=== PATIENT | male | born 1965 | race Caucasian/White ===

== ENCOUNTER 2019-09-18 07:57 | Inpatient (IN) | payer OTHER ==
[~2019-09-18] VITALS: Ht 180.3 cm; Wt 95.3 kg
[2019-09-18] VITALS (9 sets, daily range): BP systolic 129–164; BP diastolic 72–98
--- NOTE | ~2019-09-18 | H ---
[facility] [place] [address] HISTORY AND PHYSICAL Name: ILENE HUITRON Room #: 170-2 ADM IN M.R.#: [id number] Admission: 09/18/19 Attend Phys: Jerry Quiles MD, Discharge: Date of : 65 Report #: [id number] THIS REPORT FOR: cc: FAM - Family physician unknown FAM - Family physician unknown ~ CC: [facility] unknown Jerry GIBBONS DO EVA DE LA GARZA DO DATE OF SERVICE: 09/18/2019 HISTORY OF PRESENT ILLNESS: The patient is a 54-year-old male seen by Dr. Gibbons in [place], [place]; Dr. De La Garza, his cardiology down there. He is up in [place] this morning having some worsening chest pain. Apparently, this has been occurring intermittently for the last 6 days with some exertional component. 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 It looks like from the limited records, he had a 3.5 x 23 stent placed to his proximal LAD in [place] in November of last year. This was in the setting of an acute anterior myocardial infarction. He has been back to work and had 1 stress test post-procedure. Apparently, there was no damage done. He had been pain free until this week. He has been compliant with medications, which were Plavix, aspirin, Lasix 40, tizanidine, Lisinopril 5, spironolactone 25 and pravastatin 40. There has been a decrease in exercise tolerance. No PND, orthopnea, peripheral edema. No syncope or presyncope. His laboratory work has a negative troponin. His EKG does have what looks like possibly an old anterior infarct. His sodium is 139, potassium 4.7, creatinine 1.2. Liver function tests look normal. H and H is 15 and 43. Chest x-ray is normal. PAST MEDICAL HISTORY: Positive for coronary artery disease, hypertension, hypercholesterolemia and some anemia, which was iron deficient, which is now resolved with iron supplement. No surgeries, he states. SOCIAL HISTORY: He is . He has grown children. He lives with his sister. An lqrr-pvm-skbo semi truck driver. He drinks on the weekends and he has been a smoker of vapor since he was a teenager. FAMILY HISTORY: Only an uncle had premature coronary disease in his 50s, parents and siblings have not. REVIEW OF SYSTEMS: Essentially negative except for some occasional nocturia. PHYSICAL EXAMINATION: VITAL SIGNS: Blood pressure 150/98, pulse 70s. [address] [address] HISTORY AND PHYSICAL Name: ILENE HUITRON Room #: [facility]-2 [facility] IN M.R.#: [id number] Admission: 09/18/19 Attend Phys: Jerry Quiles MD, Discharge: Date of : 65 Report #: [id number] HEENT: Eyes reveal xanthelasmas. Pharynx is clear. NECK: Shows preserved upstrokes without JVD or bruits. LUNGS: Clear. CARDIOVASCULAR: Regular rate and rhythm, S1, S2. No murmur or gallop. ABDOMEN: Soft, slightly tender in the epigastric area. EXTREMITIES: Reveal no edema. His pulses were intact. NEUROLOGIC: Nonfocal. SKIN: Warm and dry without xanthoma or ulcer. MUSCULOSKELETAL: No gross joint deformity. ASSESSMENT: 1. Recurrent chest pain consistent with prior anginal equivalent. 2. Coronary artery disease with left anterior descending stent placed November 2018. 3. Hypertension. 4. Hypercholesterolemia. 5. History of iron deficiency anemia, apparently resolved. RECOMMENDATIONS AND PLAN: Admitted under observation. We will proceed to the catheterization lab to delineate the anatomy. Based on his story, sounds this is certainly suspicious for some recurrent coronary issue here. Risks, benefits, alternatives were discussed with him and his sister. We will proceed to the label tacker here at some point today. Thank you for asking me to assist in the care of this patient. By: 0916 1009 /nt
--- NOTE | ~2019-09-18 | D ---
[facility] [place] [address] DISCHARGE SUMMARY Name: ILENE HUITRON Room #: 212-P ADM IN M.R.#: [id number] Admission: 09/18/19 Attend Phys: Jerry Quiles MD, Discharge: Date of : 65 Report #: [id number] THIS REPORT FOR: cc: FAM - Family physician unknown FAM - Family physician unknown ~ THIS REPORT FOR: //name// CC: Dr. Aamir Harvey [facility] unknown Jerry Burgess [facility]: The patient is a 54-year-old male who was admitted to [facility] with recurrent chest pain. 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 He had a 3.5 x 23 drug-eluting stent to his proximal LAD in [place], [place] in October of last year. Dr. Burgess did a stress test approximately 4-5 months ago, which showed no ischemia. He has been doing fairly well. He has been compliant with his medications and is on dual antiplatelet therapy and subsequently ruled out and taken to the catheterization lab based on this history. His LAD stent is long and widely patent, but there is some mild restenosis within a focal area in the middle of the stent of approximately 50%, but the caliber of this vessel was still the size of the vessel as the mid and distal LAD wrapped the apex, so I do not perceive this to be flow limiting and certainly not tight enough to give anything like rest pain. The circumflex is large and nondominant with mild disease. The dominant right has a 30-40% proximal mid vessel lesion. No occlusive disease. There is an anterolateral defect noted. The EF is in the 50% range. His abdominal aorta was intact. No aneurysm and renal arteries were patent. I do not perceive this the anatomy that would give him rest pain or even progressive symptoms. He has not been exercising, certainly needs to continue to do so. He continues to vape and I would strongly recommend against not vaping. He will be discharged to home later today after IV fluids in the follow discharge protocol. His groin is stable. He had a Mynx closure device. No lifting for 48 hours, no lying in tub or Jacuzzi or goyal for a week. He may return to work here in 48 hours. Restart home medications of lisinopril 5, tizanidine, Aldactone 25, pravastatin 40, Lasix 40, Plavix and aspirin. He probably could go to Lasix every other day. His pump function is fairly well preserved. I do not see a reason for any volume overload here. DISCHARGE DIAGNOSES: 1. Recurrent chest pain, negative troponin. 2. Coronary artery disease with prior stent 10/2018, 50% in-stent restenosis in 1 focal area and long proximal left anterior descending stent. See above report. Mild right coronary artery disease. 3. Mild ischemic cardiomyopathy of 45-50% range. 4. Hypertension. [address] [address] DISCHARGE SUMMARY Name: ELANAILENE Room #: 212-P [facility] IN M.R.#: [id number] Admission: 09/18/19 Attend Phys: Jerry Quiles MD, Discharge: Date of : 65 Report #: [id number] 5. Hypercholesterolemia. FOLLOWUP: With Dr. Burgess and Dr. Harvey next month. Thank you for asking me to assist in the care of this patient. By: 1604 1631 /nt
[~2019-09-18 07:57] MED LIST: PRAVACHOL40 MG PO; PROTONIX40 M1 PO
[2019-09-18] MEDS ORDERED: PLAVIX 75 MG TA75 MG PO (08:09)
[2019-09-18] MEDS ORDERED: ASPIR 8181 M1 PO (08:10)
[2019-09-18] MEDS ORDERED: FUROSEMIDE 40 M40 MG PO (08:11)
[2019-09-18] MEDS ORDERED: TIZANIDINE4 MG/1 TA1 PO (08:11)
[2019-09-18] MEDS ORDERED: LISINOPRIL5 MG PO (08:12)
[2019-09-18] MEDS ORDERED: SPIRONOLACTONE25 MG PO (08:12)
[2019-09-18 08:42] LABS: ABSOLUTE NEUTROPHILS 4.5 thou/uL (1.4-8.2); BASOPHILS 0.7 % (0.0-2.0); EOSINOPHILS 3.2 % (0.0-3.0); HEMATOCRIT 43.9 % (42.0-52.0); HEMOGLOBIN 15.1 gm/dL (14.0-18.0); LYMPHOCYTES 25.8 % (24.0-44.0); MCH 33.2 pg (26.0-34.0); MCHC 34.3 g/dL (28.0-37.0); MCV 96.8 fL (80.0-100.0); MONOCYTES 6.4 % (1.0-8.0); PLATELET COUNT 252 thou/uL (150-400); POLYS 63.9 % (36.0-66.0); RBC 4.53 mil/uL (4.50-6.00); RDW 13.9 % (10.5-14.5)
[2019-09-18 08:49] LABS: ANION GAP 6 mmol/L (7-16); BUN 22 mg/dL (7-18); CALCIUM 9.7 mg/dL (8.5-10.1); CHLORIDE 103 mmol/L (98-107); CO2 30 mmol/L (21-32); CREATININE 1.2 mg/dL (0.7-1.3); GLUCOSE 109 mg/dL (74-106); POTASSIUM 4.7 mmol/L (3.5-5.1); SODIUM 139 mmol/L (136-145)
[2019-09-18 09:00] LABS: ALBUMIN 4.5 g/dL (3.4-5.0); SGOT 23 U/L (15-37); SGPT 35 U/L (30-65); TOTAL BILIRUBIN 0.3 mg/dL (<0.1-1.0); TOTAL PROTEIN 8.3 g/dL (6.4-8.2); TROPONIN-I <0.06 ng/mL (<0.06)
[2019-09-18 10:02] LABS: AMP/METHAMP Negative (Negative); BARBITURATES Negative (Negative); BENZODIAZEPINES Negative (Negative); COCAINE Negative (Negative); METHADONE Negative (Negative); OPIATES Negative (Negative); PCP Negative (Negative)
--- NOTE | 2019-09-18 14:42 | 2DMMODE ---
[facility] [place] [address] 2 D/M-MODE ECHOCARDIOGRAM Name: ILENE HUITRON Room #: 212-P ADM IN M.R.#: [id number] Admission: 09/18/19 Attend Phys: Jerry Quiles MD, Discharge: Date of : 65 Report #: [id number] THIS REPORT FOR: cc: FAM - Family physician unknown FAM - Family physician unknown Yahir Gonsales MD [facility] ~ APPROVED REPORT Study performed: 09/18/2019 13:49:30 EXAM: Comprehensive 2D, Doppler, and color-flow Echocardiogram Patient Location: Bedside Room #: 212 Status: routine BSA: 2.15 HR: 65 bpm BP: 135/95 mmHg Rhythm: NSR Other Information Study Quality: Good Indications Chest Pain Hx: CAD, stents, HTN, HLP. 2D Dimensions RVDd: 29.21 mm IVSd: 9.40 (7-11mm) LVOT Diam: 23.00 (18-24mm) LVDd: 57.00 mm PWd: 10.46 (7-11mm) Ascending Ao: 35.55 (22-36mm) LVDs: 43.27 (25-40mm) Aortic Root: 40.30 mm Volumes Left Atrial Volume (Systole) Single Plane 4CH: 40.22 mL Single Plane 2CH: 73.05 mL LA ESV Index: 28.00 mL/m2 Aortic Valve AoV Peak Te.: 1.04 m/s AO Peak Gr.: 4.35 mmHg LVOT Max P.09 mmHg LVOT Max V: 1.01 m/s MITZI Vmax: 4.03 cm2 [facility] [address] [place] [address] 2 D/M-MODE ECHOCARDIOGRAM Name: ILENE HUITRON Room #: 212-P [facility].#: [id number] Admission: 09/18/19 Attend Phys: Jerry Quiles, Discharge: Date of : 65 Report #: [id number] Mitral Valve E/A Ratio: 0.9 MV Decel. Time: 214.57 ms MV E Max Te.: 0.48 m/s MV A Te.: 0.56 m/s MV PHT: 62.23 ms IVRT: 79.58 ms Pulmonary Valve PV Peak Te.: 0.84 m/s PV Peak Gr.: 2.85 mmHg Pulmonary Vein P Vein S: 0.52 m/s P Vein A: 0.32 m/s P Vein D: 0.28 m/s P Vein A Dur.: 96.9 msec P Vein S/D Ratio: 1.86 Tricuspid Valve TR Peak Te.: 2.10 m/s RAP Estimate: 5.00 mmHg TR Peak Gr.: 18.00 mmHg PA Pressure: 23.00 mmHg Left Ventricle Left ventricle is at the upper limits of normal. Regional wall motion abnormalities are noted. There is normal left ventricular wall thickness. Left ventricular systolic function is moderately decreased. Mid to distal septal and apical akinesis LVEF is 40%. Mild diastolic dysfunction is present (impaired relaxation pattern). Right Ventricle The right ventricle is normal size. The right ventricular systolic function is normal. Atria The left atrium size is normal. The right atrium size is normal. Aortic Valve The aortic valve is normal in structure. Trace aortic regurgitation. There is no aortic valvular stenosis. Mitral Valve The mitral valve is normal in structure. No mitral regurgitation. No evidence of mitral valve stenosis. [facility] [address] [place] [address] 2 D/M-MODE ECHOCARDIOGRAM Name: ILENE HUITRON Room #: 212-P ADM IN M.R.#: [id number] Admission: 09/18/19 Attend Phys: Jerry Quiles, Discharge: Date of : 65 Report #: [id number] Tricuspid Valve The tricuspid valve is normal in structure. Trace tricuspid regurgitation. Estimated PAP is 20-25mmHg. Pulmonic Valve The pulmonary valve is normal in structure. Trace pulmonic regurgitation. Great Vessels Aortic root is dilated at 4.0cm. The ascending aorta is normal in size. IVC is normal in size and collapses >50% with inspiration. Pericardium There is no pericardial effusion. <Conclusion> Left ventricular systolic function is moderately decreased. Mid to distal septal and apical akinesis LVEF is 40%. Mild diastolic dysfunction The aortic valve is normal in structure. Trace aortic regurgitation, no stenosis. The mitral valve is normal in structure. No mitral regurgitation. Trace tricuspid regurgitation. Estimated pulmonary artery pressure of 20-25mmHg. There is no pericardial effusion. <ELECTRONICALLY SIGNED> By: Yahir Gonsales MD, FACC 09/18/19 1440 1440 1440 Yahir Gonsales MD, FACC /INF
--- NOTE | 2019-09-18 16:42 | CATHLAB ---
[facility] [place] [address] INVASIVE PROCEDURE REPORT Name: ELANAILENE Room #: 212-P ADM IN M.R.#: [id number] Admission: 09/18/19 Attend Phys: Jerry Quiles MD, Discharge: Date of : 65 Report #: [id number] THIS REPORT FOR: cc: FAM - Family physician unknown FAM - Family physician unknown Jerry Quiles MD [facility] ~ APPROVED REPORT Study performed: 09/18/2019 14:37:09 Patient Details Patient Status: In-Patient Room #: The patient is a 54 year-old male Event Personnel Jerry Quiles Sausage Tier, Faina Tripp RN RN, Kailee Rouse RTR, HE Scrsvetlana, Caitlyn aMcias Monitor Procedures Performed Art Access - R femoral artery* Left Heart Cath w/or w/o Coronaries [id number] [facility] Aortogram Abdominal Peripheral Angio 380262 58524 Initial Mod Sed Same Phys/QHP Gr5y 652244 94144 Mod Sed Same Phys/QHP Ea [id number] Hemostasis w/ Mynx Indication Chest pain Procedure Narrative The Right Groin^ was infiltrated with 1% Lidocaine subcutaneous anesthesia. A PINNACLE 6FR Sheath #[id number] sheath was inserted into the RFA 6F^. Coronary angiography was performed using coronary diagnostic catheters. The right coronary system was accessed and visualized with a JR4 catheter. The left coronary system was accessed and visualized with a JL4 catheter. The left ventricle was accessed and visualized with a STR PIG catheter. The patient tolerated the procedure well and there were no complications associated with the procedure. There was no hematoma. Intraoperative Conscious Sedation Sedation start time: 152 Case end Time: 1610 Fentanyl 50 mcg Versed 1 mg Fluoro Time: 1.58 minutes [facility] [address] [place] [address] INVASIVE PROCEDURE REPORT Name: ELANAILENE Room #: 212-P [facility] IN .R.#: [id number] Admission: 09/18/19 Attend Phys: Jerry Quiles, Discharge: Date of : 65 Report #: [id number] Dose: DAP 3354.30 cGycm2 392 mGy Contrast Type and Amount: Omnipaque 100 ml Hemodynamics The aortic pressure is 145/61 mmHg with a mean of 78 mmHg. The left ventricular pressure is 126/12 mmHg with a mean of mmHg. The left ventricular end diastolic pressure is 28 mmHg. Conclusion 1. Normal left ventricular size with anterior lateral apical hypokinesis predominate involving the anterior and inferior apex EF 40 to 45% #2 abdominal aortogram revealing an intact abdominal aorta renal arteries and iliac system intact patent no aneurysm. #3 left main free of disease giving rise to LAD and circumflex #4 the proximal LAD has a previously placed 3.5 x 23 stent. There is mild restenosis and then a focal segment of 50 to 60% in the proximal third of the stent however that lumen is still as large as the distal half of the LAD. Treat this medically. #5 circumflex OM is large with mild irregularity. #6 dominant right coronary eccentric 40 to 50% mid vessel lesion diffusely disease and a relatively small PDA TALIA but no occlusive disease Recommendations and plan: Continue aggressive risk factor modification. Vaping should be DC'd aerobic activity recommended. Will discharge tonight following discharge protocol. <ELECTRONICALLY SIGNED> By: Jerry Quiles MD, FACC 09/18/19 1640 1640 1640 Jerry Quiles MD, FACC /INF
--- NOTE | 2019-09-19 11:52 | EKG ---
[facility] [place] [address] ELECTROCARDIOGRAM REPORT Name: ILENE HUITRON Room #: 212-P [facility] IN M.R.#: [id number] Admission: 09/18/19 Attend Phys: Jerry Quiles MD, Discharge: 09/18/19 Date of : 65 Report #: [id number] THIS REPORT FOR: cc: FAM - Family physician unknown FAM - Family physician unknown Rolly Singh MD ~ THIS REPORT FOR: //name// [facility] ED Test Date: 2019-09-18 Test Time: 08:00:42 Pat Name: ILENE HUITRON Department: Room: [facility] Gender: M Fisheries Manager: [place] : 1965 Requested By: Bernard Raines Order Number: [id number] MD: Rolly Singh Measurements Intervals [place] Rate: 77 P: 73 WI: 162 QRS: 80 QRSD: 109 T: 79 QT: 403 QTc: 457 Interpretive Statements Sinus rhythm Anteroseptal infarct, old Compared to ECG 01/26/2016 12:58:26 Myocardial infarct finding now present Sinus bradycardia no longer present Electronically Signed On 09-19-2019 11:51:13 CDT by Rolly Singh [email or web address] <ELECTRONICALLY SIGNED> By: Rolly Singh MD 09/19/19 1151 08 08 Rolly Singh MD /EPI
== END 2019-09-18 20:25 | disposition home or self-care (01) | DRG 287 ==
LOC: ER 07:57 → EROBS 09:10 → 2N 10:15
PROVIDERS: Emergency Medicine; ADMIT Internal Medicine Cardiovascular Disease
DX: I25.10 Atherosclerotic heart disease of native coronary artery without angina pectoris (principal); E78.5 Hyperlipidemia, unspecified; I10 Essential (primary) hypertension; I25.5 Ischemic cardiomyopathy; E78.00 Pure hypercholesterolemia, unspecified; Y83.8 Other surgical procedures as the cause of abnormal reaction of the patient, or of later complication, without mention of misadventure at the time of the procedure; I25.2 Old myocardial infarction; Y92.89 Other specified places as the place of occurrence of the external cause; Z82.49 Family history of ischemic heart disease and other diseases of the circulatory system; Z79.899 Other long term (current) drug therapy
CPT/HCPCS: 10081